=== PATIENT | male | born 1980 | race Hispanic/Latino ===

== ENCOUNTER → 2024-04-16 | Outpatient (CLI) | payer OTHER | END | disposition home or self-care (01) | LOC: RAH 08:45 | PROVIDERS: ATTEND Internal Medicine Gastroenterology | DX: K57.30 Diverticulosis of large intestine without perforation or abscess without bleeding (principal); K44.9 Diaphragmatic hernia without obstruction or gangrene; R13.10 Dysphagia, unspecified | CPT/HCPCS: 74240 ==

== ENCOUNTER → 2024-09-13 | Outpatient (CLI) | payer OTHER ==
--- NOTE | 2024-09-14 09:34 | HMCIMG ---
Nuclear medicine gastric emptying study HISTORY: ABD pain, nausea, vomiting. COMPARISON: No relevant prior studies. RADIOPHARMACEUTICAL: 1 mCi of technetium 99 sulfur colloid TECHNIQUE: Dynamic computer imaging and serial static images were performed over the anterior abdomen for 1 hour. Static images obtained up to 2 hours. By region of interest computer analysis, a time/activity curve for the stomach was generated and a T 1/2 for clearance of activity was determined. FINDINGS: Review of dynamic images does not demonstrate any gastroesophageal reflux. The normal pattern of gastric emptying is appreciated. T 1/2: 51 minutes (normal 55-90 minutes). Percent empty at 1 hour: 92 percent (less than 40 percent at one hour is consistent with delayed emptying). IMPRESSION: Normal gastric emptying. No evidence of gastric outlet obstruction. No evidence of gastric emptying delay or gastroparesis.
== END | disposition home or self-care (01) ==
LOC: RAH 10:41
PROVIDERS: ATTEND Internal Medicine Gastroenterology
DX: R10.9 Unspecified abdominal pain (principal); R11.2 Nausea with vomiting, unspecified
CPT/HCPCS: 78264; A9541